=== PATIENT | male | born 2000 | race Caucasian/White ===

== ENCOUNTER 2019-04-14 10:21 | Emergency (ER) | payer OTHER, SELFPAY ==
--- NOTE | 2019-04-14 10:26 | ED.EAR ---
HPI - Ear Problem General Chief complaint: Ear Stated complaint: ear pain Time Seen by Provider: 04/14/19 10:26 Source: patient and RN notes reviewed History of Present Illness HPI Narrative: Patient is a 18-year-old male that presents the urgent care with complaints of left ear pain and sore throat. Patient states it started on Sunday and he has been using Sudafed. Denies any known fever, chills, nausea, vomiting. No other acute complaints. No acute distress noted. Patient aware of the the plan of care. Related Data Home Medications Medication Instructions Recorded Confirmed pseudoephedrine HCl [Sudafed 12 mg PO 04/14/19 Hour] sertraline 100 mg PO DAILY 04/14/19 04/14/19 Allergies Allergy/AdvReac Type Severity Reaction Status Date / Time nut - unspecified Allergy Unknown HIVES Verified 04/14/19 10:43 Penicillins Allergy Unknown UNK Verified 04/14/19 10:43 Review of Systems Review of Systems: Narrative: CONSTITUTIONAL: Denies fever, chills, or sweats. EYES: Denies visual changes, redness, or discharge. ENT: Reports of left ear pain and sore throat CARDIOVASCULAR: Denies chest pain, palpitations, or edema. RESPIRATORY: Denies cough or dyspnea. GASTROINTESTINAL: Denies abdominal pain, nausea, vomiting, or diarrhea. GENITOURINARY: Denies dysuria or hematuria. SKIN: Denies rash or itching. MUSCULOSKELETAL: Denies back pain, joint pain, or myalgia. NEUROLOGIC: Denies headache, numbness, or weakness. PMFSH Comments At the time of my signature, I reviewed and agree with the nursing past medical, surgical, social, and family history. There is no relevant family history pertinent to the patient complaint. Exam Narrative: Exam Narrative: GENERAL: This is a well-nourished, well-developed patient, in no apparent distress. HEAD: normocephalic, atraumatic. EYES: PERRL. Sclera clear/white. Vision is grossly intact. EARS: External ears normal, auditory canals clear and without drainage, moderately effused and injected left TM, right TMs normal without perforation. Hearing grossly intact. NOSE: External nose normal with no obvious nasal discharge, nares without redness, no rhinorrhea. THROAT: Mucous membranes moist, moderate erythema noted posterior oropharynx with notable petechiae without exudate or ulceration. Moderate postnasal drainage. NECK: Neck supple CARDIOVASCULAR: Regular rate and rhythm without murmurs, gallops, or rubs. RESPIRATORY: Clear to auscultation. Breath sounds equal bilaterally. No wheezes, rales, or rhonchi. SKIN: warm, intact with no suspicious lesions or rash, good texture and turgor. NEURO: awake, alert, and oriented to person, place and time. There were no obvious focal neurologic abnormalities. EXTREMITIES: No clubbing, cyanosis, or edema. Course Vital Signs Vital signs: Vital Signs Temperature 97.2 F L 04/14/19 10:38 Pulse Rate 90 04/14/19 10:38 Respiratory Rate 16 04/14/19 10:38 Blood Pressure 129/78 04/14/19 10:38 Pulse Oximetry 99 04/14/19 10:38 Temperature 97.2 F L 04/14/19 10:38 Pulse Rate 90 04/14/19 10:38 Respiratory Rate 16 04/14/19 10:38 Blood Pressure 129/78 04/14/19 10:38 Pulse Oximetry 99 04/14/19 10:38 Reviewed Medical Decision Making MDM Narrative Medical decision making narrative: Reviewed lab results with the patient. He is aware that strep swab was positive. Advised patient complete antibiotic regimen as prescribed. Medication will treat both left ear infection and strep. Make sure to eat and drink with medication. Use Flonase nasal spray for postnasal drainage. Use Tylenol/ibuprofen as needed for fever pain. Follow-up with PCP within 2 to 5 days if worsening symptoms or failure to improve. Patient states he believes he is taken azithromycin before and has never had any issues. Advised the patient to speak to the pharmacist regarding nut allergy in conjunction with azithromycin prior to medication administration. Patient verbali
[2019-04-14 10:38] VITALS: BP 129/78; PULSE 90; RESP 16; TEMP 36.2; O2SAT 99
== END 2019-04-14 11:00 | disposition home or self-care (01) ==
PROVIDERS: Emergency Provider Nurse Practitioner Family
DX: H66.92 Otitis media, unspecified, left ear (principal); J02.0 Streptococcal pharyngitis; J45.909 Unspecified asthma, uncomplicated
CPT/HCPCS: 87880; 99213; G0463

== ENCOUNTER 2021-01-01 21:42 | Emergency (ER) | payer OTHER, SELFPAY ==
[2021-01-01 21:44] VITALS: BP 152/90; PULSE 98; RESP 20; TEMP 36.8; O2SAT 100
[2021-01-01 22:12] VITALS: BP 138/89; PULSE 86; RESP 12; O2SAT 99
--- NOTE | 2021-01-01 22:16 | ED.ALLEREA ---
HPI - Allergic Reaction General Chief complaint: Allergic Reaction Stated complaint: Allergic reaction? Time Seen by Provider: 01/01/21 22:14 Source: patient Mode of arrival: ambulatory Limitations: no limitations History of Present Illness HPI narrative: 20 years old white male accidentally ate blizzard with nuts. patient is allergic to nuts. 1 hour prior to arrival to the emergency room developed some tightness at the back of the throat. Patient denies difficulty swallowing or breathing. Denies swelling of the lips or tongue. Also denies any skin rash. Related Data Home Medications Medication Instructions Recorded Confirmed sertraline 100 mg PO DAILY 04/14/19 04/14/19 olanzapine 20 mg 01/01/21 Allergies Allergy/AdvReac Type Severity Reaction Status Date / Time nut - unspecified Allergy Unknown HIVES Verified 01/01/21 22:21 Penicillins Allergy Unknown UNK Verified 01/01/21 22:21 Review of Systems Review of Systems: CONSTITUTIONAL: Denies fever, chills, or sweats. EYES: Denies visual changes, redness, or discharge. ENT: Denies rhinorrhea, congestion, sore throat, or otalgia. CARDIOVASCULAR: Denies chest pain, palpitations, or edema. RESPIRATORY: Denies cough or dyspnea. GASTROINTESTINAL: Denies abdominal pain, nausea, vomiting, or diarrhea. GENITOURINARY: Denies dysuria or hematuria. SKIN: Denies rash or itching. MUSCULOSKELETAL: Denies back pain, joint pain, or myalgia. NEUROLOGIC: Denies headache, numbness, or weakness. PSYCHIATRIC: Denies anxiety or depression. Exam Narrative: General appearance: Well-developed, well-nourished Skin: Normal color Head: Normocephalic, nontraumatic Eyes: Clear conjunctiva ENT: Oropharynx normal, ears normal, nose normal Neck: Supple, nontender Chest and respiratory: Airway patent, no respiratory distress, no accessory muscle use Heart: Regular rate/rhythm Abdomen: Soft, nontender, no organomegaly, quiet bowel sounds Vascular: Normal peripheral pulses, normal capillary refill. Musculoskeletal: Normal range of motion, nontender back Neurologic: Alert and oriented ?3, ABRASIVE SAWYER is normal as tested, no gross motor deficit Course Course Emergency Course: Stable, improving Reevaluation(s) Reevaluation #1: Feeling much better, denying any symptoms at this time. Ready to go home Date: 01/01/21 Time: 22:58 Vital Signs Vital signs: Vital Signs Temperature 36.8 C 01/01/21 21:44 Pulse Rate 98 01/01/21 21:44 Respiratory Rate 20 01/01/21 21:44 Blood Pressure 152/90 H 01/01/21 21:44 Pulse Oximetry 100 01/01/21 21:44 Temperature 36.8 C 01/01/21 21:44 Pulse Rate 98 01/01/21 21:44 Respiratory Rate 20 01/01/21 21:44 Blood Pressure 152/90 H 01/01/21 21:44 Pulse Oximetry 100 01/01/21 21:44 Critical Care Time Critical Care Time Critical Care Time: Yes Total Critical Care Time: 30 Discharge Plan Discharge Clinical Impression: Allergic reaction Patient Disposition: Home, Self-Care Condition: Improved Instructions: Antibiotic Form, Food Allergy (ED) Additional Instructions: Return if symptoms are worsening , call your family physician for appointment, take Tylenol as as needed for aches and pain, continue home medications. Prescriptions: New prednisone 20 mg tablet 20 mg PO BID Qty: 6 RF: 0 No Action sertraline 100 mg Tablet 100 mg PO DAILY RF: 0 olanzapine 20 mg tablet 20 mg RF: 0 Follow-up/Referrals: Vicente Kinsey MD [Physician] - UNKNOWN,DOCTOR [Primary Care Provider] -
[2021-01-01] MEDS: diphenhydrAMINE HCl CAP 25 MG CAPSULE 50 MG PO (22:26)
[2021-01-01] MEDS: EPINEPHrine HCL INJ 1 MG/ML AMPUL 0.3 MG IM (22:27)
[2021-01-01] MEDS: predniSONE 20 MG TABLET 60 MG PO (22:27)
[2021-01-01 22:46] VITALS: BP 123/66; PULSE 69; RESP 16; O2SAT 100
[2021-01-01 23:20] VITALS: BP 126/75; PULSE 88; RESP 12; O2SAT 100
== END 2021-01-01 23:20 | disposition home or self-care (01) ==
PROVIDERS: Emergency Provider Emergency Medicine
DX: T78.1XXA Other adverse food reactions, not elsewhere classified, initial encounter (principal); Z91.018 Allergy to other foods
CPT/HCPCS: 96372; 99283; A9270; J0171; J7512

== ENCOUNTER 2021-04-05 10:28 | Emergency (ER) | payer OTHER, SELFPAY ==
[2021-04-05 10:44] VITALS: BP 145/86; PULSE 71; RESP 16; TEMP 36.2; O2SAT 100
--- NOTE | 2021-04-05 10:54 | ED.URI ---
HPI - URI/Sore Throat General Chief Complaint: Upper Respiratory Infection Stated Complaint: cough/fever Source: patient Mode of arrival: ambulatory Limitations: no limitations History of Present Illness HPI Narrative: 20-year-old male presenting for complaint of headache, sinus congestion, occasional cough, fatigue and fever for about 5 days. He states he felt dizzy yesterday and one episode of diarrhea today. Denies nausea, vomiting, diarrhea, chest pain, palpitations or wheezing. Patient is not vaccinated for COVID. He endorses roommate was positive for COVID about 2 weeks ago. Taking Mucinex for symptoms. MD elicited complaint: cough Related Data Home Medications Medication Instructions Recorded Confirmed sertraline 100 mg PO DAILY 04/14/19 04/14/19 Allergies Allergy/AdvReac Type Severity Reaction Status Date / Time nut - unspecified Allergy Unknown HIVES Verified 01/01/21 22:21 Penicillins Allergy Unknown UNK Verified 01/01/21 22:21 Review of Systems Review of Systems: CONSTITUTIONAL: Endorses malaise, chills, sweats, fever. EYES: Denies visual changes, redness, or discharge. ENT: Reports rhinorrhea, congestion, sinus pain, otalgia and sore throat. CARDIOVASCULAR: Denies chest pain, palpitations, or edema. RESPIRATORY: Reports cough, post nasal drainage. Denies dyspnea. GASTROINTESTINAL: Denies abdominal pain, nausea, vomiting, diarrhea SKIN: Denies rash or itching. MUSCULOSKELETAL: Endorses myalgia. NEUROLOGIC: Denies headache. Exam Narrative: GENERAL: Ill-appearing, nontoxic no acute distress. HEAD: Normocephalic EYES: PERRLA, conjunctivae clear ENT: Mucous membranes moist. TM pearly thrasher with dull light reflex bilaterally; no tragal tenderness. Oropharynx erythematous without lesions. Tonsils enlarged and without exudate, no drooling, no hoarseness, no trismus, uvula midline. NECK: Supple. No lymphadenopathy CHEST: Clear to auscultation, breath sounds equal. No wheezing, rhonchi, rales, or stridor. No respiratory distress, speaks in full sentences. HEART: Regular rate and rhythm. No murmur heard. SKIN: Warm, dry, no rash. NEURO: Alert and oriented x3. PSYCH: Normal mood and affect Course Course Emergency Course: covid negative Patient is aware of diagnosis, understands and agrees to treatment plan. Anticipatory guidance given. Patient agrees to follow-up as directed and is aware of reasons to seek care at the emergency department. Portions of this record may have been created with voice recognition software Level of Care: Express Care Visit Vital Signs Vital signs: Vital Signs Temperature 97.1 F L 04/05/21 10:44 Pulse Rate 71 04/05/21 10:44 Respiratory Rate 16 04/05/21 10:44 Blood Pressure 145/86 H 04/05/21 10:44 Pulse Oximetry 100 04/05/21 10:44 Temperature 97.1 F L 04/05/21 10:44 Pulse Rate 71 04/05/21 10:44 Respiratory Rate 16 04/05/21 10:44 Blood Pressure 145/86 H 04/05/21 10:44 Pulse Oximetry 100 04/05/21 10:44 reviewed MDM - URI/Sore Throat Differential Diagnosis Differential diagnosis: Likely upper respiratory infection and viral infection Discharge Plan Discharge Clinical Impression: Viral infection Patient Disposition: Home, Self-Care Condition: Stable Instructions: Antibiotic Form, COVID-19 (Coronavirus Disease 2019) (ED) Additional Instructions: Your Rapid COVID test was negative today. If you are symptomatic with reason to believe you have COVID-19, there is a high possibility your rapid test may not have detected the virus. You should follow appropriate guidelines regarding quarantine, hand washing, mask wearing, and social distancing Rest, stay hydrated. Tylenol, Flonase/nasal spray, Zyrtec, cough syrup and cold/flu medications for symptoms as needed Follow up with your primary care provider as needed in 1-2 weeks Prescriptions: No Action sertraline 100 mg Tablet 100 mg PO DAILY RF: 0 Follow-up/Referrals: PHYSICIAN
== END 2021-04-05 11:14 | disposition home or self-care (01) ==
PROVIDERS: Emergency Provider Nurse Practitioner Family
DX: B34.9 Viral infection, unspecified (principal); Z20.822 Contact with and (suspected) exposure to COVID-19
CPT/HCPCS: 87426; 99213; C9803; G0463

== ENCOUNTER 2021-06-20 20:39 | Emergency (ER) | payer OTHER, SELFPAY ==
--- NOTE | 2021-06-20 20:44 | ED_ITS ---
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 Patient was at [facility], and states that he was exposed to peanuts. Patient believes it was probably from cross-contamination. According to witnesses, patient was unable to speak clearly, mumbled to others he was having allergic reaction. Patient usually is on EpiPen's, and ingested 50 mg of Benadryl prior to arrival. Patient is currently alert and oriented x3, no difficulty breathing, shortness of breath, or dysphagia Related Data Home Medications Medication Instructions Recorded Confirmed sertraline 100 mg PO DAILY 04/14/19 04/14/19 Allergies Allergy/AdvReac Type Severity Reaction Status Date / Time nut - unspecified Allergy Unknown HIVES Verified 01/01/21 22:21 Penicillins Allergy Unknown UNK Verified 01/01/21 22:21 Review of Systems Review of Systems: CONSTITUTIONAL: Denies fever, chills, or sweats. EYES: Denies visual changes, redness, or discharge. ENT: Denies rhinorrhea, congestion, sore throat, or otalgia. CARDIOVASCULAR: Denies chest pain, palpitations, or edema. RESPIRATORY: Reports shortness of breath, dyspnea GASTROINTESTINAL: Denies abdominal pain, nausea, vomiting, or diarrhea. GENITOURINARY: Denies dysuria or hematuria. SKIN: Denies rash or itching. MUSCULOSKELETAL: Denies back pain, joint pain, or myalgia. NEUROLOGIC: Denies headache, numbness, dizziness, or weakness. PSYCHIATRIC: Denies anxiety or depression. Exam Narrative: GENERAL: Well-appearing, well-nourished, and in no acute distress. HEAD: Normocephalic, atraumatic. EYES: PERRLA and EOMI. ENT: Nares clear, no rhinorrhea or epistaxis. Mucous membranes moist. Oropharynx without tonsillar hypertrophy exudate NECK: Supple. No adenopathy or masses. No carotid bruits or JVD CHEST: Clear to auscultation. No respiratory distress. No wheezes rales or rhonchi HEART: Regular rate and rhythm. No murmur heard. Normal peripheral pulses. ABDOMEN: Soft, nontender, nondistended, normal active bowel sounds. EXTREMITIES: Normal range of motion. No edema. SKIN: Warm, dry, no rash. NEURO: No focal deficits. Alert and oriented x3. PSYCH: Normal mood and affect. Discharge Plan Discharge Prescriptions: No Action sertraline 100 mg Tablet 100 mg PO DAILY RF: 0
[2021-06-20 20:48] VITALS: BP 135/69; PULSE 65; RESP 12; TEMP 36.5; O2SAT 99
[2021-06-20] MEDS: methylPREDNISolone SOD SUCC 125 MG VIAL IV PUSH (20:48)
[2021-06-20] MEDS: diphenhydrAMINE HCl INJ 50 MG/ML VIAL 25 MG IV PUSH (20:48)
[2021-06-20] MEDS: FAMOTIDINE 20 MG/2 ML VIAL IV PUSH (20:48)
[2021-06-20] MEDS: SODIUM CHLORIDE 0.9% IV 1,000 ML 999 ML IV CONT (20:48)
[2021-06-20 22:34] VITALS: BP 119/70; PULSE 56; RESP 18; O2SAT 98
--- NOTE | 2021-06-20 22:41 | PC.NURSE ---
Pt called complaining of IV irritation. Requesting IV be taken out immediately. Still 200 cc of fluids remaining. Clarified with [employer] [place], OK to take out IV at this time. Encouraged PO fluids, given urinal.
== END 2021-06-20 22:43 | disposition home or self-care (01) ==
PROVIDERS: Emergency Provider Nurse Practitioner Family
DX: T78.40XA Allergy, unspecified, initial encounter (principal)
CPT/HCPCS: 96361; 96374; 96375; 99284; J1200; J2930; J7030